=== PATIENT | male | born 1985 | race Caucasian/White ===

== ENCOUNTER → 2025-05-31 | Outpatient (REF) | payer OTHER ==
[2025-05-31 11:51] LABS: SEMEN APPEARANCE OPAQUE (OPAQUE); SEMEN VISCOSITY LIQUID (LIQUID); SEMEN VOLUME 1.7 ml (2.0-5.0); SPERM CONCENTRATION 144.4 M/ml (>=15.0); WBC CONCENTRATION <=1 M/ml (<=1 M/ml)
[2025-05-31 11:53] LABS: TOTAL PROGRESSIVE SPERM 94.0 M/Ejac.
== END ==
LOC: M LAB REF 11:25
PROVIDERS: ATTEND Nurse Practitioner Family
DX: N46.8 Other male infertility (principal)

== ENCOUNTER → 2025-06-24 | Outpatient (REF) | payer OTHER ==
[2025-06-24 13:16] LABS: APPEARANCE, URINE CLEAR (CLEAR); BACTERIA, URINE AUTO NEGATIVE (NEGATIVE); BILIRUBIN, URINE AUTO NEGATIVE (NEGATIVE); BLOOD, URINE BLOOD NEGATIVE (NEGATIVE); CALCIUM OXALATE CRYSTALS SMALL; GLUCOSE, URINE (UA) AUTO NEGATIVE (NEGATIVE); KETONE, URINE AUTO NEGATIVE (NEGATIVE); LEUKOCYTE ESTERASE, URINE AUTO NEGATIVE (NEGATIVE); MUCUS, URINE SMALL (NEGATIVE); NITRITE, URINE AUTO NEGATIVE (NEGATIVE); PROTEIN, URINE AUTO NEGATIVE (NEGATIVE); RBC, URINE AUTO 0 /HPF (0-3); SPECIFIC GRAVITY URINE AUTO 1.024 (1.002-1.035); SQUAMOUS EPITHELIAL CELL UR AU 0 /HPF (0-6); UROBILINOGEN, URINE AUTO 2.0 mg/dL (0.0-2.0); WBC, URINE AUTO 1 /HPF (0-3)
[2025-06-24 13:52] LABS: Trichomonas vaginalis (AMP) NOT DETECTED (NEGATIVE)
[2025-06-24 14:15] LABS: GC DNA AMPLIFICATION NEGATIVE (NEGATIVE)
== END ==
LOC: M LAB REF 11:54
PROVIDERS: ATTEND Physician Assistant Medical
DX: N39.0 Urinary tract infection, site not specified (principal); Z20.2 Contact with and (suspected) exposure to infections with a predominantly sexual mode of transmission

== ENCOUNTER → 2025-06-25 | Outpatient (REF) | payer OTHER | LOC: M LAB REF 17:24 | PROVIDERS: ATTEND Physician Assistant Medical | DX: A74.9 Chlamydial infection, unspecified (principal) ==